=== PATIENT | male | born 2000 | race Caucasian/White ===

== ENCOUNTER 2022-12-17 08:16 | Outpatient (CLI) | payer MEDICAID | END 2022-12-17 08:17 | disposition critical access hospital (66) | LOC: EMS 08:16 | DX: R53.83 Other fatigue (principal) | CPT/HCPCS: A0425; A0429; A0999 ==

== ENCOUNTER 2022-12-17 08:40 | Emergency (ER) | payer MEDICAID ==
--- NOTE | 2022-12-17 08:48 | ED Physician Documentation ---
PD HPI ALTERED MENTAL STATUS - Stated complaint Stated Complaint: MED CLEARANCE - History obtained from History obtained from: Patient, EMS - History of Present Illness Timing - onset: How many days ago (last used fenatnyl 3-4 days ago. he was in [place] and got meds Suboxone, Clinidine and nausea meds it sounds like. He did not get Rx withen he left [place]. Having persistent withdrawal of shaky, nausea, abd cramps, and having cravings as well.) Timing - details: Gradual onset, Still present Associated symptoms: NVD (nausea without vomiting. Loose stool but no diarrhea per se.). No: Fever, Headache, Dyspnea, Cough Contributing factors: Substance abuse. No: Recent med change, Recent illness Basline status: Alert and oriented X 3, Ambulatory Treatment MUNICIPAL CLERK: Accucheck Similar symptoms before: Has not had sx before Recently seen: Not recently seen Review of Systems Constitutional: denies: Fever, Chills Cardiac: denies: Chest pain / pressure, Palpitations Respiratory: denies: Dyspnea, Cough GI: reports: Abdominal Pain, Nausea PD PAST MEDICAL HISTORY - Past Medical History Cardiovascular: None Respiratory: None Neuro: None Endocrine/Autoimmune: None - Present Medications Home Medications: Ambulatory Orders Medication Instructions Recorded Confirmed Buprenorphine HCl/Naloxone HCl 1 tab SL BID #6 tablet 12/17/22 [Suboxone 8-2 mg Tab] Ondansetron Odt [Zofran] 4 mg TL Q6H PRN #10 tablet 12/17/22 cloNIDine [Catapres] 0.1 mg PO BID #10 tablet 12/17/22 - Allergies Allergies/Adverse Reactions: Allergies Allergy/AdvReac Type Severity Reaction Status Date / Time No Known Drug Allergies Allergy Verified 12/17/22 09:05 PD ED PE NORMAL - Vitals Vital signs reviewed: Yes - General General: Alert and oriented X 3, No acute distress, Well developed/nourished - Neck Neck: Supple, no meningeal sign, No adenopathy - Cardiac Cardiac: RRR (mild tachycardia.), No murmur - Respiratory Respiratory: Clear bilaterally - Abdomen Abdomen: Soft, Non tender - Derm Derm: Normal color, Warm and dry - Neuro Neuro: Alert and oriented X 3, No motor deficit, Normal speech Results - Vitals Vitals: Vital Signs - 24 hr 12/17/22 08:45 Temperature 36.6 C Heart Rate 105 H Respiratory 16 Rate Blood Pressure 129/84 H O2 Saturation 100 Oxygen O2 Source Room air PD Medical Decision Making - ED course Complexity details: considered differential (he has been having fentanyl withdrawal and cravings. Had been at [facility] and left early. He states they told him he needs to wait a day before they will do intake again. ), d/w patient Social Determinants of Health: he was getting Suboxone, clinidine, zofran. He states no scripts given when he left prematurely. lI can give xcripts for 3 days of Suboxone as well as other supportive medacations. He states has been at least 6 days without Fentanyl. I did feel we can given meds for the symptoms for 3 days, allowing time for him to call back [facility] and re-accepted to program. He was given dose here and feeling improved. He should do okay with that. Departure - Departure Disposition: Home, Self Care Clinical Impression: Fentanyl dependence, Withdrawal from opioids Condition: Stable Record reviewed to determine appropriate education?: Yes Instructions: ED Narcotic Abuse Prescriptions: cloNIDine [Catapres] 0.1 mg PO BID #10 tablet Buprenorphine HCl/Naloxone HCl [Suboxone 8-2 mg Tab] 1 tab SL BID #6 tablet Ondansetron Odt [Zofran] 4 mg TL Q6H PRN #10 tablet PRN Reason: Nausea / Vomiting Comments: I am prescribing new Suboxone to take twice daily for the next 2 to 3 days. I wrote 3 days worth in case there is some delay getting back into [facility] tomorrow. Clonidine twice daily for symptoms as well and ondansetron/Zofran if needed for nausea. Tylenol if needed for pains. Stay well-hydrated and try to have a regular diet. Contacted [facility] tomorrow to try to get back into their program. I sent your prescriptions to [facility] pharmacy in [place]. Discharge Date/Time: 12/17/22 09:32
[2022-12-17 09:05] VITALS: BP 129/84
[2022-12-17] MEDS ORDERED: BUPRENORPHINE/NALOXONE 8-2 MG TAB SL STA (09:12)
[2022-12-17] MEDS ORDERED: ONDANSETRON ODT 4 MG TABLET TL STA (09:13)
[2022-12-17] MEDS ORDERED: cloNIDine 0.1 MG TABLET PO STA (09:13)
[2022-12-17] MEDS ORDERED: NALOXONE HCL NASAL SPRAY KIT NAS STA (09:19)
--- NOTE | 2022-12-20 11:24 | ED Physician Documentation ---
ED Addendum - Addendum Addendum: 12/20/22 11:24 The patient called and talked with the community reinvestment act officer. He had tried to get the prescriptions from [facility] in [place] and they do not take his insurance. He asked that we send them to [facility] in [place] instead. I did this.
== END 2022-12-17 09:32 | disposition home or self-care (01) ==
LOC: ED 08:40
DX: F11.23 Opioid dependence with withdrawal (principal)
CPT/HCPCS: 99283; 99284; A9270; G2215; Q0162